=== PATIENT | male | born 1990 | race Hispanic/Latino ===

== ENCOUNTER 2017-06-27 15:18 | Emergency (ER) | payer SELFPAY ==
[2017-06-27] MEDS ORDERED: IBUPROFEN 600 MG TABLET ONE (16:16)
[2017-06-27 17:15] LABS: RAPID GROUP A STREP NEGATIVE (NEGATIVE)
== END 2017-06-27 17:40 | disposition home or self-care (01) ==
LOC: EDH 15:18
DX: J09.X2 Influenza due to identified novel influenza A virus with other respiratory manifestations (principal); Z72.0 Tobacco use
CPT/HCPCS: 87804; 87880